=== PATIENT | female | born 1960 | race Caucasian/White ===

== ENCOUNTER 2022-07-06 11:09 | Outpatient (CLI) | payer BC | END 2022-07-06 11:10 | disposition home or self-care (01) | LOC: CSHMAMMO 11:09 | PROVIDERS: ATTEND Family Medicine | DX: Z12.31 Encounter for screening mammogram for malignant neoplasm of breast (principal) | CPT/HCPCS: 77063; 77067 ==

== ENCOUNTER 2023-04-06 08:14 | Outpatient (CLI) | payer BC ==
[2023-04-06] MEDS ORDERED: Iopamidol 370 76% 100 ML VIAL ONE (09:01)
== END 2023-04-06 08:15 | disposition home or self-care (01) ==
LOC: CSHCT 08:14
PROVIDERS: ATTEND Physician Assistant Medical
DX: R10.13 Epigastric pain (principal); R14.0 Abdominal distension (gaseous); R19.7 Diarrhea, unspecified; K21.9 Gastro-esophageal reflux disease without esophagitis; R10.9 Unspecified abdominal pain; K57.10 Diverticulosis of small intestine without perforation or abscess without bleeding
CPT/HCPCS: 74177; 82565; Q9967